=== PATIENT | female | born 1985 | race Caucasian/White ===

== ENCOUNTER 2023-01-13 08:00 | Outpatient (NON) | payer BC, SELFPAY | END 2023-01-13 08:01 | disposition home or self-care (01) | PROVIDERS: PCP Family Medicine; Visit Provider Nurse Practitioner | DX: B07.9 Viral wart, unspecified (principal) | CPT/HCPCS: 88305 ==

== ENCOUNTER → 2023-03-09 11:46 | Outpatient (CLI) | payer BC, SELFPAY ==
--- NOTE | ~2023-03-09 | XR_ITS ---
EXAMINATION: XR sacrum coccyx min 2V INDICATION: Persistent pain after fall TECHNIQUE: Three views of the sacrum and coccyx are obtained. COMPARISON: None available FINDINGS: Bone alignment is normal. There is no fracture. The soft tissues are unremarkable. IMPRESSION: 1. No acute osseous abnormality. Reviewed, dictated and finalized at location B.
== END ==
PROVIDERS: PCP Nurse Practitioner Family; Visit Provider Nurse Practitioner Family
DX: M53.3 Sacrococcygeal disorders, not elsewhere classified (principal); G89.29 Other chronic pain
CPT/HCPCS: 72220

== ENCOUNTER 2023-09-08 12:39 | Outpatient (CLI) | payer BC, SELFPAY ==
[2023-09-08 19:02] LABS: Basophils Absolute Auto 0.1 K/mm3 (0.0-0.1); Basophils Percent Auto 1.4 % (0.2-1.2); Eosinophils Absolute Auto 0.1 K/mm3 (0-0.3); Eosinophils Percent Auto 1.4 % (0-4.4); Hematocrit 38.9 % (37.0-47.0); Hemoglobin 12.2 g/dL (12.0-15.0); Immature Granulocyte Absolute 0.01 K/mm3 (0.00-0.031); Immature Granulocyte Percent A 0.2 % (0-0.5); Lymphocytes Absolute Auto 1.95 K/mm3 (0.9-3.2); Lymphocytes Percent Auto 35.1 % (18.3-44.2); Mean Corpuscular HGB Conc 31.4 g/dl (32-36); Mean Corpuscular Hemoglobin 28.9 pg (26-34); Mean Corpuscular Volume 92.2 fl (80-100); Mean Platelet Volume 10.4 fl (7.4-10.4); Monocytes Absolute Auto 0.6 K/mm3 (0.1-0.6); Monocytes Percent Auto 9.9 % (2.6-8.5); Neutrophils Absolute Auto 2.9 K/mm3 (1.3-6.7); Platelet Count Result 361 k/mm3 (150-375); Red Blood Count 4.22 M/mm3 (4.2-5.4); Red Cell Distribution Width 13.6 % (11.5-14.5); White Blood Count 5.6 K/mm3 (4.5-10.0)
[2023-09-08 19:13] LABS: Alanine Aminotransferase 14 U/L (6-35); Albumin Level 4.8 g/dL (3.5-5.1); Alkaline Phosphatase 49 U/L (38-126); Anion Gap 9 mmol/L (8-16); Aspartate Amino Transferase 28 U/L (14-36); Bilirubin,Total 0.7 mg/dL (0.2-1.3); Blood Urea Nitrogen 12 mg/dL (7-17); Calcium 9.1 mg/dL (8.4-10.2); Carbon Dioxide 23 mmol/L (22-30); Chloride 101 mmol/L (98-107); Estimated Glomerular Filt Rate > 60; Glucose 67 mg/dL (65-110); Potassium 3.6 mmol/L (3.4-5.0); Sodium 133 mmol/L (137-145)
[2023-09-18 16:33] LABS: Estrogen 173 pg/mL
== END 2023-09-08 12:40 | disposition home or self-care (01) ==
LOC: ANHGOSHLAB 12:40
PROVIDERS: PCP Family Medicine; Visit Provider Nurse Practitioner Family
DX: Z00.00 Encounter for general adult medical examination without abnormal findings (principal); N92.6 Irregular menstruation, unspecified; N93.9 Abnormal uterine and vaginal bleeding, unspecified; Z79.899 Other long term (current) drug therapy
CPT/HCPCS: 36415; 80053; 82672; 84144; 85025

== ENCOUNTER 2023-09-23 10:53 | Outpatient (CLI) | payer BC, SELFPAY | END 2023-09-23 10:54 | disposition home or self-care (01) | PROVIDERS: PCP Family Medicine; Visit Provider Nurse Practitioner Family | DX: E03.9 Hypothyroidism, unspecified (principal); F41.9 Anxiety disorder, unspecified | CPT/HCPCS: 36415; 84443 ==

== ENCOUNTER 2025-05-10 14:39 | Outpatient (CLI) | payer OTHER, SELFPAY ==
[2025-05-10 19:01] LABS: Basophils Absolute Auto 0.1 K/mm3 (0.0-0.1); Basophils Percent Auto 1.8 % (0.2-1.2); Eosinophils Absolute Auto 0.1 K/mm3 (0-0.3); Eosinophils Percent Auto 2.1 % (0-4.4); Hematocrit 38.4 % (37.0-47.0); Hemoglobin 12.5 g/dL (12.0-15.0); Immature Granulocyte Absolute 0.01 K/mm3 (0.00-0.031); Immature Granulocyte Percent A 0.2 % (0-0.5); Lymphocytes Absolute Auto 2.13 K/mm3 (0.9-3.2); Lymphocytes Percent Auto 37.8 % (18.3-44.2); Mean Corpuscular HGB Conc 32.6 g/dl (32-36); Mean Corpuscular Hemoglobin 29.6 pg (26-34); Mean Platelet Volume 10.1 fl (7.4-10.4); Monocytes Absolute Auto 0.6 K/mm3 (0.1-0.6); Neutrophils Absolute Auto 2.7 K/mm3 (1.3-6.7); Neutrophils Percent Auto 47.1 % (45.5-73.1); Platelet Count Result 372 k/mm3 (150-375); Red Blood Count 4.22 M/mm3 (4.2-5.4); Red Cell Distribution Width 14.2 % (11.5-14.5); White Blood Count 5.6 K/mm3 (4.5-10.0)
[2025-05-10 19:13] LABS: Alanine Aminotransferase 11 U/L (6-35); Albumin Level 4.2 g/dL (3.5-5.1); Alkaline Phosphatase 43 U/L (38-126); Anion Gap 7 mmol/L (4-12); Aspartate Amino Transferase 23 U/L (14-36); Bilirubin,Total 0.3 mg/dL (0.2-1.3); Blood Urea Nitrogen 8 mg/dL (7-17); Calcium 9.2 mg/dL (8.4-10.2); Carbon Dioxide 25 mmol/L (22-30); Chloride 104 mmol/L (98-107); Cholesterol 200 mg/dL (0-200); Estimated Glomerular Filt Rate > 60; Glucose 90 mg/dL (65-110); HDL Direct 97 mg/dL; Potassium 4.7 mmol/L (3.4-5.0); Sodium 136 mmol/L (137-145); Total Protein 7.1 g/dL (6.3-8.2); Triglycerides 48 mg/dL (<150)
[2025-05-10 19:24] LABS: LDL Cholesterol Direct 69 mg/dL
[2025-05-10 19:32] LABS: Vitamin D 25 Hydroxy 30.6 ng/mL
[2025-05-13 03:58] LABS: Immunoglobulin A 103 mg/dL (47-310); TTG IGA AB <1.0 U/mL
== END 2025-05-10 14:40 | disposition home or self-care (01) ==
LOC: ANHGOSHLAB 14:40
PROVIDERS: PCP Family Medicine; Visit Provider Nurse Practitioner Family
DX: Z00.00 Encounter for general adult medical examination without abnormal findings (principal); Z13.220 Encounter for screening for lipoid disorders; Z79.899 Other long term (current) drug therapy; E55.9 Vitamin D deficiency, unspecified; F41.9 Anxiety disorder, unspecified; R10.9 Unspecified abdominal pain; R14.0 Abdominal distension (gaseous)
CPT/HCPCS: 36415; 80053; 80061; 82306; 82784; 84443; 85025

== ENCOUNTER 2025-05-11 14:45 | Outpatient (CLI) | payer OTHER, SELFPAY ==
[2025-05-13 03:58] LABS: Immunoglobulin A 96 mg/dL (47-310); TTG IGA AB <1.0 U/mL
== END 2025-05-11 14:46 | disposition home or self-care (01) ==
LOC: ANHGOSHLAB 14:47
PROVIDERS: PCP Family Medicine; Visit Provider Family Medicine
DX: R10.9 Unspecified abdominal pain (principal); R14.0 Abdominal distension (gaseous)
CPT/HCPCS: 36415; 82784

== ENCOUNTER 2025-07-13 11:11 | Outpatient (CLI) | payer OTHER, SELFPAY ==
[2025-07-14 07:09] LABS: FSH 5.6 mIU/mL (.)
[2025-07-14 11:08] LABS: LH 4.3 mIU/mL (.)
[2025-07-21 14:08] LABS: Estradiol, Sensitive 54.0 pg/mL (.)
[2025-07-23 05:37] LABS: Free Testosterone (Direct) 0.5 pg/mL (0.0-4.2)
== END 2025-07-13 11:12 | disposition home or self-care (01) ==
LOC: ANHGOSHLAB 11:13
PROVIDERS: PCP Family Medicine; Visit Provider Obstetrics & Gynecology
DX: N93.9 Abnormal uterine and vaginal bleeding, unspecified (principal)
CPT/HCPCS: 82166; 82627; 82670; 83001; 83002; 84144; 84146; 84402; 84403

== ENCOUNTER 2025-07-30 07:43 | Emergency (ER) | payer OTHER, SELFPAY ==
--- OUTSIDE RECORDS SUMMARY | 2015-08-14 19:00 | XMS_ITS | Continuity of Care Document ---
Author Organization [facility] Address [address] [place] [address] Phone Care Team Providers Care Spinning Bath Patroller Name Role Phone Unavailable Unavailable Unavailable Advance Directives Directive Yes / No Effective Date File Name No Information Encounters Encounter Description Practice Location Reason(s) For Visit Diagnoses Date Provider Providers Copied on Encounter [facility], [address] [place], [place], [id number], tel:[phone] [facility] OUTPATIENT No Information 3 0-201 5 No Information Referring Provider: KASHIF SOUSA IS, [address] [facility] [address], [address]. tel:[phone] Family History Family Member Type Diagnosis Age At Onset No Information Payers Payer name Insurance type Covered green party ID Authoriza tion(s) No Information Social History Type Description Quantity Date Captured Comments Sex Female Smoking Status No Information Chief Complaint And Reason For Visit No Information History Of Present Illness Encounter Date Complaint History Of Prese nt Illness No Information Instructions Date Instruction Additional Infor mation No Information Assessments Type Assessment Date No Information
--- OUTSIDE RECORDS SUMMARY | 2017-10-29 05:00 | XMS_ITS | Continuity of Care Document ---
Author Organization [facility] Address [address] [address] [place] [address] Phone Care Team Providers Care Sr. Payroll Manager Name Role Phone Chas Wtit MD Unavailable Unavailable Advance Directives Directive Yes / No Effective Date File Name No Information Encounters Encounter Description Practice Location Reason(s) For Visit Diagnoses Date Provider Providers Copied on Encounter [facility], [address] [place], [id number], [place] tel:[phone] [facility] No Information Eduar Doherty. [address] [place], [address], [place]. tel:[phone] Referring Provider: Chas Witt, [address] [facility] [place], [id number]. tel:[phone] Family History Family Member Type Diagnosis Age At Onset No Information Payers Payer name Insurance type Covered constitution party ID Authoriza tion(s) No Information Social History Type Description Quantity Date Captured Comments Sex Female Smoking Status No Information Chief Complaint And Reason For Visit No Information Plan Of Treatment Date Type Action Status No Information History Of Present Illness Encounter Date Complaint History Of Prese nt Illness No Information Instructions Date Instruction Additional Infor mation No Information Assessments Type Assessment Date No Information
--- OUTSIDE RECORDS SUMMARY | 2025-02-16 13:30 | XMS_ITS ---
Author Organization [facility] [place] ([address]) Address [address] [place] [address] Care Team Providers Care Burnishing Machine Operator Name Role Phone Kanu Joshjuanito Bullard [phone] REASON FOR VISIT Botox Only, MesoGold Facial - EXOBloom (exosomes), VAMP and Baby Botox Encounters Encounter Location Date Provider Diagnosis [place] [address] [place] [address] 02/16/2025 Josh Bobby Plan Of Treatment Next Appt Details Follow Up: 4 Weeks, Reason: [place] Duet Facial Progress Notes * Sundeep MUSTAFAOB:1985 ( 39 yo F)Acc No.[id number]:02/16/2025 Toxin Aesthetic 30 Patient: Mary SCANLON Provider: Marc Bobby MD :1985 A ge:39 Y S ex:Female Date:02/16/2025 [address] [place] Subjective: * Chief Complaints: * 1 . Botox Only. 2. MesoGold Facial - EXOBloom (exosomes), VAMP and Baby Botox. * Medical History: Objective: * Vitals: Assessment: Plan: * Treatment: * Follow Up: 4 Weeks (Reason: [place] Duet Facial) * Billing Information: * Visit Code: * Procedure Codes: QU800 MesoGold Facial (with 2 mL MesoPeptide serum & Exome 20+). QU808 AH [place] NAD+ GHK-CU Cream (1.69 oz, 50 mL). QU101 Quell - Toxin Botox (1 Unit). QU814 Prollenium VAMP (PDRN - 1 Vial). * Electronic signature of Tiffani Bobby MD, FAAAAI on 07/30/2025 at 10:20 AM CDT Sign off status: Pending * Provider: Marc Bobby MD Date: 0 02/16/2025 Generated for Santana vee/Jacob/Steph on: 0 07/30/2025 10:20 AM CDT
[2025-07-30] VITALS (11 sets, daily range): BP systolic 93–101; BP diastolic 63–71; PULSE 65–102; RESP 12–18; TEMP 36.8; O2SAT 98–100
--- NOTE | ~2025-07-30 | CT_ITS ---
EXAMINATION: CTA chest PE abdomen pel, 07/30/2025 11:10 CDT HISTORY: Pain with deep breath, left side COMPARISON: No comparisons available. TECHNIQUE: CTA scan with 3D Reconstructions of the chest, CT of the abdomen and pelvis was performed with contrast Isovue 300, 92cc injected IV. One or more of the following dose reduction techniques were used: automated exposure control, adjustment of the mA and/or kV according to patient size, use of iterative reconstruction technique. Unless otherwise stated, incidental findings do not require dedicated follow up imaging FINDINGS: CT chest: No significant coronary calcification is present ([id number]) LUNGS: Contrast bolus adequate, no pulmonary embolism identified. No tracheomalacia. No bronchiectasis. No significant emphysematous changes or pulmonary fibrotic changes. HEART AND PERICARDIUM: Within normal limits. AORTA: Normal caliber aorta. MEDIASTINUM: Unremarkable. THYROID: The thyroid is unremarkable. CT abdomen: LIVER: Unremarkable, liver contours intact, no lesions. SPLEEN: Unremarkable, no splenomegaly. KIDNEYS: Right Kidney: Unremarkable. No calculi. No hydronephrosis. Left Kidney: Unremarkable. No calculi. No hydronephrosis ADRENAL GLANDS: Unremarkable. PANCREAS: GALLBLADDER/BILIARY: Unremarkable. No biliary dilatation. STOMACH AND ESOPHAGUS: Visualized stomach and esophagus within normal limits. BOWEL/MESENTERY: Moderate fecal content large bowel. There are thickened loops of large bowel noted most marked involving the distal transverse and proximal descending colon with an inflamed diverticulum in this area but no perforation or abscess. Appendix normal. Remaining mesentery normal. No dilated small bowel loops. RETROPERITONEUM: Unremarkable AORTA/VASCULATURE: Normal caliber aorta. FREE FLUID OR FREE AIR: Small amount of free fluid.. CT pelvis: SOLID ORGANS/REPRODUCTIVE: No adnexal mass. BLADDER: Within normal limits. LYMPHADENOPATHY: No lymphadenopathy. OSSEOUS STRUCTURES: No acute rib fractures. OVERLYING SOFT TISSUES: Unremarkable. IMPRESSION: 1. Negative for pulmonary embolism. No acute process within the chest 2. Acute diverticulitis. No perforation or abscess Reviewed, dictated and finalized at location A.
--- NOTE | 2025-07-30 08:05 | PC.NURSE ---
Pt unable to void at this time
[2025-07-30 08:21] LABS: Hematocrit 37.4 % (37.0-47.0); Hemoglobin 12.5 g/dL (12.0-15.0); Immature Granulocyte Percent A 1.0 % (0-0.5); Lymphocytes Absolute Auto 1.93 K/mm3 (0.9-3.2); Mean Corpuscular HGB Conc 33.4 g/dl (32-36); Mean Corpuscular Hemoglobin 29.3 pg (26-34); Mean Corpuscular Volume 87.6 fl (80-100); Nucleated Red Blood Cells Absolute Auto 0.000 K/mm3 (0.0-0.012); Nucleated Red Blood Cells Perc 0.0 % (0.0-0.2); Platelet Count Result 372 k/mm3 (150-375); Red Blood Count 4.27 M/mm3 (4.2-5.4); White Blood Count 10.6 K/mm3 (4.5-10.0)
[2025-07-30 08:29] LABS: Alanine Aminotransferase 19 U/L (6-35); Albumin Level 4.1 g/dL (3.5-5.1); Alkaline Phosphatase 56 U/L (38-126); Anion Gap 7 mmol/L (4-12); Aspartate Amino Transferase 20 U/L (14-36); Bilirubin,Total 0.5 mg/dL (0.2-1.3); Blood Urea Nitrogen 10 mg/dL (7-17); Calcium 8.7 mg/dL (8.4-10.2); Carbon Dioxide 22 mmol/L (22-30); Chloride 105 mmol/L (98-107); Estimated CRCL calculation 68 ml/min; Estimated Glomerular Filt Rate > 60; Glucose 93 mg/dL (65-110); Lipase 54 U/L (23-300); Potassium 4.1 mmol/L (3.4-5.0); Sodium 134 mmol/L (137-145); Total Protein 7.2 g/dL (6.3-8.2)
[2025-07-30 10:00] LABS: BEDSIDEPREGUCG Negative (Negative)
[2025-07-30 10:17] LABS: Add Urine Microscopic? YES; Appearance Urine Clear (Clear); Glucose Urine UA Negative (Negative); Leukocyte Esterase Ur 1+ LEU/UL (Negative); Need Manual Microscopic Reviewed; Nitrate Urine Negative (Negative); Non Pathogenic Casts 0-2; Specific Grav Ur 1.022 (1.001-1.035)
--- OUTSIDE RECORDS SUMMARY | 2025-07-30 10:20 | XMS_ITS | Patient Health Record ---
Author Organization [facility] [place] ([address]) Address [address] [place] [address] Care Team Providers Care Labor Contractor Name Role Phone Josh Bobby [phone] Reason For Referral No Information Encounters Encounter Location Date Provider Diagnosis [facility] - [place] [place] [address] 02/16/2025 Josh Bobby Plan Of Treatment No Information
[2025-07-30] MEDS: SODIUM CHLORIDE 0.9% IV 1,000 ML 999 ML IV CONT (10:26)
[2025-07-30] MEDS: KETOROLAC 30 MG/ML VIAL (*BKC) IV PUSH (10:27)
--- NOTE | 2025-07-30 12:21 | PC.NURSE ---
Pt. reports 8/10 LUQ pain upon movement or inspiration. Pt. states she does not want any additional pain medication at this time.
--- NOTE | 2025-07-30 12:40 | ED.ABDPAIN ---
HPI - Abdominal Pain General Chief Complaint: Abdominal Pain Stated Complaint: abdominal pain Time Seen by Provider: 07/30/25 10:00 History of Present Illness HPI narrative: Patient is a 39-year-old female who presents ER with abdominal pain. Left upper quadrant. Ongoing over last day. No constipation or diarrhea. No fevers or chills or sweats. Family history of diverticulitis and she thinks she may have the same thing. Also has pain in the area with deep breath. No cough. No hormone use. No leg swelling or hemoptysis. Related Data Home Medications ?Medication ?Instructions ?Recorded ?Confirmed ?Last Taken ?Type cholecalciferol (vitamin D3) 50 50 mcg PO DAILY 05/11/25 06/26/25 Unknown History mcg (2,000 unit) capsule prasterone (DHEA) 10 mg tablet 10 mg PO DAILY 06/26/25 06/26/25 Unknown History Allergies Allergy/AdvReac Type Severity Reaction Status Date / Time aspartame Allergy Unknown FACIAL Verified 07/30/25 07:44 SWELLING AND HIVES codeine Allergy Unknown Anaphylaxis Verified 07/30/25 07:44 latex Allergy Unknown Hives Verified 07/30/25 07:44 DYE 3 Allergy Unknown FACIAL Uncoded 06/26/25 13:45 SWELLING AND HIVES Review of Systems Review of Systems: All systems reviewed & are unremarkable except as noted in HPI and below Constitutional: Constitutional: Reports no additional constitutional complaints Cardiovascular: Cardiovascular: Reports no additional cardiovascular complaints Respiratory: Respiratory: Reports no additional respiratory complaints Gastrointestinal: Gastrointestinal: Reports no additional gastrointestinal complaints [facility] Past Medical History Medical History (Updated 07/30/25 @ 12:44 by Delmar Molina MD) Abnormal uterine bleeding Family history of BRCA gene positive History of depression ADHD Hyperactivity Family History Family History (Updated 06/26/25 @ 13:54 by Morris Becerra MA) Mother Diverticulitis Sibling Diverticulitis Grandparent Breast cancer Social History Social History (Updated 06/26/25 @ 13:54 by Morris Becerra MA) Smoking status: Former smoker Smoking end date: 04/26/08 Alcohol intake: current Alcohol use details: socially Substance use: never Substance use type: does not use Do You Feel Safe in your Home?: Yes Lack of Transportation: No Lack of Food: Never True Current Housing: I Have Housing Concerned About Future Housing: No Difficulty Paying Gas/Electric Bills: No Difficulty Paying for Meds: No Currently Unemployed: No Education: Bachelor's Degree Difficulty w/ Childcare or Family Care: No Living arrangements: with family Additional living arrangements comments: Occupation/Education: occupation 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 HEAD: Normocephalic, atraumatic. ENT: Mucous membranes moist. CHEST: Clear to auscultation. No respiratory distress. HEART: Regular rate and rhythm. Normal peripheral pulses. ABDOMEN: Soft, nontender, nondistended. EXTREMITIES: Normal range of motion. No edema. SKIN: Warm, dry, no rash. NEURO: Alert and oriented x3. PSYCH: Normal mood and affect. Course Course Emergency Course: Patient informed of results. Discharge home with oral antibiotics. No PE. White count [address]. Normal electrolytes and renal function. Urinalysis with 6-10 white blood cells and 1+ leukocyte esterase as well as 2+ bacteria. No symptoms of UTI but antibiotics prescribed would likely treat this as well. Vital Signs Vital signs: Vital Signs Temperature 98.3 F 07/30/25 07:55 Pulse Rate 92 07/30/25 07:55 Respiratory Rate 12 07/30/25 07:55 Blood Pressure 98/70 L 07/30/25 07:55 Pulse Oximetry 100 07/30/25 07:55 Oxygen Delivery Room Air 07/30/25 07:55 Temperature 98.3 F 07/30/25 07:55 Pulse Rate 92 07/30/25 11:31 Respiratory Rate 18 07/30/25 11:31 Blood Pressure 97/65 L 07/30/25 11:31 Pulse Oximetry 100 07/30/25 11:31 Oxygen Delivery Room Air 07/30/25 07:55 MDM - Abdominal Pain Lab Data 07/30/25 08:02 07/30/25 08:02 Labs: Lab Results 07/30/25 07/30/25 07/30/25 Range/Units 08:02 09:51 09:58 WBC 10.6 H (4.5-10.0) K/mm3 RBC 4.27 (4.2-5.4) M/mm3 Hgb 12.5 (12.0-15.0) g/dL Hct 37.4 (37.0-47.0) % MCV 87.6 (80-100) fl MCH 29.3 (26-34) pg MCHC 33.4 (32-36) g/dl RDW 13.6 (11.5-14.5) % Plt Count 372 (150-375) k/mm3 MPV 9.6 (7.4-10.4) fl Immature Gran % (Auto) 1.0 H (0-0.5) % Neut % (Auto) 67.6 (45.5-73.1) % Lymph % (Auto) 18.2 L (18.3-44.2) % [place] % (Auto) 9.9 H (2.6-8.5) % Eos % (Auto) 2.6 (0-4.4) % Baso % (Auto) 0.7 (0.2-1.2) % Lymph # (Auto) 1.93 (0.9-3.2) K/mm3 [place] # (Auto) 1.1 H (0.1-0.6) K/mm3 Eos # (Auto) 0.3 (0-0.3) K/mm3 Baso # (Auto) 0.1 (0.0-0.1) K/mm3 Abs Immat Gran (auto) 0.11 H (0.00-0.031) K/mm3 Absolute Neuts (auto) 7.2 H (1.3-6.7) K/mm3 Absolute Nucleated RBC 0.000 (0.0-0.012) K/mm3 Nucleated RBC % 0.0 (0.0-0.2) % D-Dimer 0.64 H (<0.48) ug/mL Sodium 134 L (137-145) mmol/L Potassium 4.1 (3.4-5.0) mmol/L Chloride 105 (98-107) mmol/L Carbon Dioxide 22 (22-30) mmol/L Anion Gap 7 (4-12) mmol/L BUN 10 (7-17) mg/dL Creatinine 0.80 (0.7-1.0) mg/dL Estim Creat Clear Calc 68 ml/min Estimated GFR > 60 (59 - ) Glucose 93 (65-110) mg/dL Calcium 8.7 (8.4-10.2) mg/dL Total Bilirubin 0.5 (0.2-1.3) mg/dL AST 20 (14-36) U/L ALT 19 (6-35) U/L Alkaline Phosphatase 56 (38-126) U/L Total Protein 7.2 (6.3-8.2) g/dL Albumin 4.1 (3.5-5.1) g/dL Lipase 54 (23-300) U/L Urine Color Yellow (Yellow) Urine Appearance Clear (Clear) Urine pH 5.5 (5.0-9.0) Ur Specific [place] 1.022 (1.001-1.035) Urine Protein Negative (Negative) mg/dL Urine Glucose (UA) Negative (Negative) mg/dL Urine Ketones 1+ H (Negative) mg/dL Ur Blood (Man) Negative (Negative) Urine Nitrate Negative (Negative) Urine Bilirubin Negative (Negative) Urine Urobilinogen 1.0 (<2.0) mg/dL Add Ur Microanalysis Reviewed Leukocyte Esterase Rfl 1+ H (Negative) JSUTINO/UL Urine RBC 0-2 (0-2) /hpf Urine WBC 6-10 H (0-3) /hpf Ur Squamous Epith Cells Few (Few) /hpf Urine Bacteria 2+ H /hpf Urine Casts 0-2 Urine Mucus Present /lpf POC Urine HCG, Qual Negative (Negative) Imaging Data Radiologist's impression: ITS Impressions Chest/Abdomen/Pelvis CTA 07/30/25 11:53 IMPRESSION: 1. Negative for pulmonary embolism. No acute process within the chest 2. Acute diverticulitis. No perforation or abscess Discharge Plan Discharge Clinical Impression: Diverticulitis Patient Disposition: Home Condition: Stable Instructions: Antibiotic Form, Diverticulitis (ED), Diverticulitis Diet (ED) Additional Instructions: Return to the emergency department if you develop severe abdominal pain, severe nausea and vomiting to the point where you are unable to keep down fluids, if you develop chest pain or difficulty breathing, blood in your stool, dizziness or fainting, or if you develop any other new or concerning symptoms as these could be signs of more serious medical illness. Try to stay well hydrated. Patient Language: East [place]orese Prescriptions: New ondansetron 4 mg tablet,disintegrating 4 mg PO Q6H PRN (Reason: nausea and vomiting) Qty: 10 0RF amoxicillin-pot clavulanate 875-125 mg tablet 1 tablet PO Q12H Qty: 17 0RF No Action omeprazole 40 mg capsule,delayed release(DR/EC) 40 mg PO DAILY Qty: 90 0RF prasterone (DHEA) 10 mg tablet 10 mg PO DAILY cholecalciferol (vitamin D3) 50 mcg (2,000 unit) capsule 50 mcg PO DAILY dextroamphetamine-amphetamine 15 mg tablet 15 mg PO BID Qty: 60 0RF Rx Instructions: administer doses at least 4-6 hours apart Follow-up/Referrals: Jose Antonio Mckenna MD [Primary Care Provider, Family Practice] - 1 Week
== END 2025-07-30 13:09 | disposition home or self-care (01) ==
PROVIDERS: Student in an Organized Health Care Education/Training Program; Emergency Provider Emergency Medicine; PCP Family Medicine
DX: K57.92 Diverticulitis of intestine, part unspecified, without perforation or abscess without bleeding (principal); F90.9 Attention-deficit hyperactivity disorder, unspecified type; Z87.891 Personal history of nicotine dependence
CPT/HCPCS: 36415; 71275; 74177; 80053; 81001; 81025; 83690; 85025; 85380; 87086; 96361; 96374; 99284; J1885; J7030; Q9967

== ENCOUNTER 2025-08-15 14:14 | Outpatient (CLI) | payer OTHER, SELFPAY ==
--- OUTSIDE RECORDS SUMMARY | 2025-02-16 13:30 | XMS_ITS ---
Author Organization [facility] [place] ([address]) Address [address] [place] [address] Care Team Providers Care Escalator Operator Name Role Phone Kanu Joshjuanito Bullard [phone] REASON FOR VISIT Botox Only, MesoGold Facial - EXOBloom (exosomes), VAMP and Baby Botox Encounters Encounter Location Date Provider Diagnosis [place] [address] [place] [address] 02/16/2025 Josh Bobby Plan Of Treatment Next Appt Details Follow Up: 4 Weeks, Reason: [place] Duet Facial Progress Notes * Sundeep MUSTAFAOB:1985 ( 40 yo F)Acc No.[id number]:02/16/2025 Toxin Aesthetic 30 Patient: Mary SCANLON Provider: Marc Bobby MD :1985 A ge:39 Y S ex:Female Date:02/16/2025 Address[address] Subjective: * Chief Complaints: * 1 . Botox Only. 2. MesoGold Facial - EXOBloom (exosomes), VAMP and Baby Botox. * Medical History: Objective: * Vitals: Assessment: Plan: * Treatment: * Follow Up: 4 Weeks (Reason: [place] Duet Facial) * Billing Information: * Visit Code: * Procedure Codes: QU800 MesoGold Facial (with 2 mL MesoPeptide serum & Exome 20+). QU808 AH [place] NAD+ GHK-CU Cream (1.69 oz, 50 mL). QU101 Quell - Toxin Botox (1 Unit). QU814 Prollenium VAMP (PDRN - 1 Vial). * Electronic signature of Tiffani Bobby MD, FAAAAI on 08/15/2025 at 02:29 PM CDT Sign off status: Pending * Provider: Marc Bobby MD Date: 0 02/16/2025 Generated for Santana vee/Jacob/Steph on: 0 08/15/2025 02:29 PM CDT
--- NOTE | ~2025-08-15 | MM_ITS ---
EXAMINATION: MM screening tae BI w leslye HISTORY: Screening TECHNIQUE: Craniocaudal and mediolateral oblique 3-D tomosynthesis images were obtained and synthetic 2-D images were generated. CAD analysis was submitted and interpreted. COMPARISON: No prior mammogram is available for comparison at this institution. BREAST PARENCHYMAL COMPOSITION: Dense: The breasts are extremely dense, which lowers the sensitivity of mammography. FINDINGS: There is no evidence of suspicious mass, calcification, or architectural distortion to suggest malignancy in either breast. There has been no suspicious interval change. IMPRESSION: 1. No mammographic evidence of malignancy. 2. Recommend routine screening mammography in one year. BI-RADS Category 1: Negative Reviewed, dictated and finalized at location B.
--- OUTSIDE RECORDS SUMMARY | 2025-08-15 14:30 | XMS_ITS | Patient Health Record ---
Author Organization [facility] [place] ([address]) Address [address] [place] [address] Care Team Providers Care Stacker And Sorter Operator Name Role Phone Josh Bobby [phone] Reason For Referral No Information Encounters Encounter Location Date Provider Diagnosis [facility] - [place] [place] [address] 02/16/2025 Josh Bobby Plan Of Treatment No Information
== END 2025-08-15 14:15 | disposition home or self-care (01) ==
PROVIDERS: PCP Family Medicine; Visit Provider Obstetrics & Gynecology
DX: Z12.31 Encounter for screening mammogram for malignant neoplasm of breast (principal)
CPT/HCPCS: 77063; 77067